=== PATIENT | female | born 1930 | race Caucasian/White ===

== ENCOUNTER 2017-01-13 11:13 | Emergency (ER) | payer MEDICARE, BC ==
[~2017-01-13] VITALS: Wt 44.0 kg
[~2017-01-13 11:13] MED LIST: ASPI-650; CIPR500T4 PO; COU25; COU5; DIGO125T73; FOLI-49; FURO20TA3 PO; IVAB5TAB PO; OMEG-135; PANT40TA4 PO; POTA8CAP PO; SUCR1TAB27 PO; THYR60TA; TIMO5DRO21; TRAV2.5D; UBID1CAP18; VALS80TA2; [UNRECOGNIZED DRUG - CODE]
--- NOTE | 2017-01-13 11:19 | ERA ---
ER Documentation Chief Complaint Date/Time DATE: 01/13/17 TIME: 11:18 Chief Complaint fall HPI The patient is 86-year-old female, presenting to the ER because he had a mechanical fall at 9 AM today. She fell and hit the back of her head on the floor. She denies syncope, near syncope, seizure, chest pain, dyspnea, abdominal pain, vomiting, dysuria, diarrhea. She does not smoke, drinks regularly Past medical history: Hypothyroidism, hypertension, history of CHF, CAD, asthma , diabetes mellitus, peripheral vascular disease, history of ascending aortic aneurysm, history of GI bleed, chronic kidney disease Past surgical history: Aortic valve replacement, pacemaker ROS All systems reviewed and are negative except as per history of present illness. Medications Home Meds Reported Medications Folic Acid* (Folic Acid*) 1 Mg Tablet, 1 MG PO DAILY, TAB 01/13/17 Digoxin* (Lanoxin*) 0.125 Mg Tablet, 0.125 MG PO DAILY, TAB 01/13/17 Aspirin (Low Dose Aspirin) 81 Mg Tablet.dr, 81 MG PO DAILY, #30 TAB 01/13/17 Warfarin Sodium* (Coumadin*) 5 Mg Tablet, 5 MG PO M,T,W,THUR,F,SAT, TAB 01/13/17 Warfarin Sodium* (Coumadin*) 2.5 Mg Tablet, 2.5 MG PO ON SUNDAYS, TAB 01/13/17 Vitamin E* (Vitamin E*) 400 Unit Capsule, 400 UNIT PO DAILY, CAP 01/13/17 Cholecalciferol (Vitamin D3) 5,000 Unit Tablet, 5000 UNIT PO DAILY, TAB 01/13/17 Ubidecarenone (Coq-10) 100 Mg Capsule, 100 MG PO DAILY, CAP 01/13/17 Bupropion Hcl* (Bupropion XL*) 150 Mg Tab.er.24h, 150 MG PO DAILY, TAB.SA 01/13/17 Thyroid* (Oil Trough Thyroid*) 60 Mg Tablet, 60 MG PO DAILY, TAB 01/13/17 Furosemide* (Lasix*) 20 Mg Tablet, 20 MG PO DAILY, TAB 01/13/17 Pantoprazole* (Pantoprazole*) 40 Mg Tablet.dr, 40 MG PO AC BREAKFAST, TAB 01/13/17 Valsartan* (Diovan*) 80 Mg Tablet, 80 MG PO DAILY, TAB 01/13/17 Ferrous Sulfate* (Ferrous Sulfate*) 325 Mg Tabec, 325 MG PO DAILY, TAB 01/13/17 Glucosamine/Msm/Chondroitin A (TRIPLE FLEX CAPLET) 1 Each Tablet, 1 EACH PO BID , TAB 01/13/17 Discontinued Reported Medications Ivabradine HCl (Corlanor) 5 Mg Tablet, 5 MG PO DAILY, #60 TAB 03/17/16 Potassium Chloride* (Potassium Chloride*) 8 Meq Capsule.er, 10 MEQ PO DAILY, CAP 03/17/16 Furosemide* (Furosemide*) 20 Mg Tablet, 20 MG PO DAILY, #60 TAB 03/17/16 Timolol Maleate (Istalol) 5 Ml Drop.daily 08/06/10 Travoprost* (Travatan Z*) 2.5 Ml Drops 08/06/10 Fish Oil* (Fish Oil*) 1,000 Mg Cap 08/06/10 Biotin (Hard Nails) 2,500 Mcg Capsule 08/06/10 Ubidecarenone/Vitamin E Mixed (Coq10 Sg 100 Softgel) 1 Cap Capsule 08/06/10 Aspirin (Aspirin) 81 Mg Tablet 08/06/10 Thyroid* (Oil Trough Thyroid*) 60 Mg Tablet 08/06/10 Warfarin Sod (Coumadin) 2.5 Mg Tablet 08/06/10 Warfarin Sod (Coumadin) 5 Mg Tablet 08/06/10 Digoxin (Digoxin) 125 Mcg Tablet 08/06/10 Folic Acid* (Folic Acid*) 1 Mg Tablet 08/06/10 Valsartan* (Diovan*) 80 Mg Tablet 08/06/10 Discontinued Scripts Ciprofloxacin Hcl* (Ciprofloxacin Hcl*) 500 Mg Tablet, 500 MG PO BID for 7 Days , TAB Prov:CHARI PURVIS 04/18/16 Sucralfate (Carafate) 1 Gm Tablet, 1 GM PO QID for 30 Days, TAB Prov:ADDISON IRIZARRY MD 03/21/16 Pantoprazole* (Pantoprazole*) 40 Mg Tablet.dr, 40 MG PO BID@ for 30 Days, 1 Refill Prov:ADDISON IRIZARRY MD 03/21/16 Allergies Allergies: Coded Allergies: No Known Drug Allergy (Verified Allergy, Unknown, 01/13/17) PMhx/Soc History of Surgery: Yes (tonsillectomy, artificial aortic valve, face lift, abdominal hernia, pacer/) Anesthesia Reaction: No Hx Neurological Disorder: No Hx Respiratory Disorders: No Hx Cardiac Disorders: Yes (pacemaker, htn, chf, X2 STENTS) Hx Psychiatric Problems: No Hx Miscellaneous Medical Probl: Yes ([place] virus) Hx Alcohol Use: Yes (1 glass of wine every night) Hx Substance Use: No Hx Tobacco Use: No Physical Exam Vitals Vital Signs Date Time Temp Pulse Resp B/P Pulse Ox O2 Delivery O2 Flow Rate FiO2 01/13/17 11:28 98.8 75 20 155/66 99 Physical Exam Const: No acute distress. Head: Atraumatic. Small occipital hematoma, no laceration Eyes: Normal Conjunctiva. No nystagmus ENT: Normal External Ears, Nose and Mouth. Neck: Full range of motion. No meningismus. Resp: Clear to auscultation bilaterally. Cardio: Regular rate and rhythm, no murmurs. Abd: Soft, non distended, normal bowel sounds, non tender. Skin: No petechiae or rashes. Back: No midline or flank tenderness. Ext: No cyanosis, or edema. Neur: Awake and alert. No focal deficit Psych: Normal Mood and Affect. Result Diagram: 01/13/17 1153 01/13/17 1153 Results 24 hrs Laboratory Tests Test 01/13/17 11:53 White Blood Count 6.010^3/ul Red Blood Count 3.3510^6/ul Hemoglobin 11.0g/dl Hematocrit 33.0% Mean Corpuscular Volume 98.5fl Mean Corpuscular Hemoglobin 32.8pg Mean Corpuscular Hemoglobin Concent 33.3g/dl Red Cell Distribution Width 14.0% Platelet Count 19414^3/UL Mean Platelet Volume 10.3fl Neutrophils % 74.5% Lymphocytes % 15.2% Monocytes % 7.0% Eosinophils % 2.2% Basophils % 0.3% Nucleated Red Blood Cells % 0.0/100WBC Neutrophils # 4.510^3/ul Lymphocytes # 0.910^3/ul Monocytes # 0.410^3/ul Eosinophils # 0.110^3/ul Basophils # 0.010^3/ul Nucleated Red Blood Cells # 0.010^3/ul Prothrombin Time 24.3Sec Prothrombin Time Ratio 1.9 INR International Normalized Ratio 2.16 Activated Partial Thromboplast Time 37.3Sec Sodium Level 143mmol/L Potassium Level 4.6mmol/L Chloride Level 107mmol/L Carbon Dioxide Level 24mmol/L Anion Gap 17 Blood Urea Nitrogen 37mg/dl Creatinine 1.84mg/dl Glucose Level 105mg/dl Calcium Level 9.4mg/dl Digoxin Level 1.1ng/ml Ethyl Alcohol Level < 10.0mg/dl Procedures/[place] [id number] Radiology Main Line: [phone] DIAGNOSTIC IMAGING REPORT Patient: DINORA NELSON : 1930 Age: 86 Sex: F MR #: [id number] DOS: 01/13/17 1127 Ordering MD: STACIE LOW MD Location: E/R Room/Bed: PROCEDURE: CT cervical spine without contrast. CLINICAL INDICATION: Trauma TECHNIQUE: Axial imaging was obtained through the cervical spine using a multi- slice CT scanner. Standard CT scan of the cervical spine without contrast protocols were performed. CTDI: 22.07 and DLP: 403.90. One or more of the following dose reduction techniques were used: - Automated exposure control. - Adjustment of the mA and/or kV according to patient size. Use of iterative reconstruction technique. COMPARISON: None. FINDINGS: There is no evidence of acute fractures or subluxations. The bony mineralization is normal. No focal bony blastic or lytic lesions. The posterior elements are intact. There is moderate to severe degenerate disease of the C5-6 and C6-7 discs with bilateral neural foraminal narrowing worse on the left. No other neural foraminal narrowing. No evidence of central spinal canal stenosis. There is spondylosis involving the C3-C7 vertebral levels. There is degenerative changes of the lateral masses of the C3-4 through C6-7 vertebral levels. There is atherosclerotic heart plaque involving the carotid arteries. There is no evidence of prevertebral soft tissue swelling. Mild scarring involving the anterior right apex. Remainder of the lung apices and airway visualized are unremarkable. IMPRESSION: 1. Degenerative changes in neural foraminal narrowing as described above. 2. No evidence acute fractures subluxations or central spinal canal stenosis. RPTAT:AAJJ Physician Blair Date Time Electronically viewed and signed by Physician Blair on 01/13/2017 12:35 BM/ CC: STACIE LOW MD [place] [id number] Radiology Main Line: [phone] DIAGNOSTIC IMAGING REPORT Patient: DINORA NELSON : 1930 Age: 86 Sex: F MR #: [id number] DOS: 01/13/17 1127 Ordering MD: STACIE LOW MD Location: E/R Room/Bed: PROCEDURE: CT Brain without contrast. CLINICAL INDICATION: Status post trauma. TECHNIQUE: CT scan of the brain was performed on a multidetector high- resolution CT scan. Axial imaging was obtained of the brain without contrast administration. Coronal and sagittal reformatted images were obtained from the axial source images. Standard CT scan of the head without contrast protocols were performed. The total exam CTDI equals 43.95 mGy and the total exam DLP equals 720.23 mGy- cm. One or more of the following dose reduction techniques were used: - Automated exposure control. - Adjustment of the mA and/or kV according to patient size. Use of iterative reconstruction technique. COMPARISON: None. FINDINGS: Small cephalohematoma involving the posterior scroll assembler. No underlying calvarial fracture or radiodense foreign body. There is mucosal thickening involving both maxillary sinuses worse on the right. Mucosal thickening involving the right frontal sinus. Remainder the paranasal sinuses visualized are unremarkable. The mastoids are unremarkable. Ventricular system is normal in size without evidence of midline shift. There is moderate prominence of the peripheral CSF spaces consistent with moderate generalized cerebral volume loss. No evidence of intracranial masses hemorrhages or midline shift. There is mild nonspecific periventricular deep white matter changes consistent with chronic microvascular ischemic disease. IMPRESSION: 1. Moderate generalized cerebral volume loss. 2. Mild nonspecific chronic microvascular ischemic disease. 3. Negative for intracranial masses hemorrhages or midline shift. RPTAT:AAJJ Physician Blair Date Time Electronically viewed and signed by Physician Blair on 01/13/2017 12:31 BM/ CC: STACIE LOW MD EKG: Read by emergency physician Rate/Rhythm: Paced rhythm 72 beats/min No further attempt to interpret the EKG MEDICAL MAKING DECISION: The patient is 86-year-old female, presenting with acute small occipital hematoma, status post mechanical fall. She remains stable in emergency department The differential diagnoses considered include but are not limited to subarachnoid hemorrhage, occult trauma, CVA, meningitis, encephalitis, hypertension, tension, migraine, cluster, narcotic withdrawal, cervical spine disease. Departure Diagnosis: Primary Impression: Scalp contusion Condition: Good Comments I discussed the findings with the patient. I advised the patient to follow-up with the primary physician in about 1-2 days, sooner if needed and return if any concern. STACIE LOW MD January 13, 2017 11:19
[2017-01-13] MEDS ORDERED: GLUC-137 PO (11:34)
[2017-01-13] MEDS ORDERED: VALS80TA2 PO (11:35)
[2017-01-13] MEDS ORDERED: FER325 PO (11:35)
[2017-01-13] MEDS ORDERED: FURO-110 PO (11:36)
[2017-01-13] MEDS ORDERED: PANT40TA4 PO (11:36)
[2017-01-13] MEDS ORDERED: BUPR150T6 PO (11:37)
[2017-01-13] MEDS ORDERED: THYR60TA PO (11:37)
[2017-01-13] MEDS ORDERED: UBID100C24 PO (11:37)
[2017-01-13] MEDS ORDERED: CHOL500010 PO (11:39)
[2017-01-13] MEDS ORDERED: VITA400C15 PO (11:40)
[2017-01-13] MEDS ORDERED: WARF5TAB72 PO (11:41)
[2017-01-13] MEDS ORDERED: WARF2.5T PO (11:41)
[2017-01-13] MEDS ORDERED: ASPI-664 PO (11:42)
[2017-01-13] MEDS ORDERED: DIGO125T6 PO (11:42)
[2017-01-13] MEDS ORDERED: FOLI-49 PO (11:42)
[2017-01-13 12:06] LABS: ADD SCAN DIFF NO
[2017-01-13 12:10] LABS: BASOPHILS % 0.3 % (0.0-2.0); EOSINOPHILS # 0.1 10^3/ul (0.0-0.5); EOSINOPHILS % 2.2 % (0.0-7.0); LYMPHOCYTES # 0.9 10^3/ul (0.8-2.9); LYMPHOCYTES % 15.2 % (15.0-51.0); MEAN CORPUSCULAR HEMOGLOBIN 32.8 pg (29.0-33.0); MEAN CORPUSCULAR HGB CONC 33.3 g/dl (32.0-37.0); MEAN CORPUSCULAR VOLUME 98.5 fl (82.0-101.0); MEAN PLATELET VOLUME 10.3 fl (7.4-10.4); MONOCYTE # 0.4 10^3/ul (0.3-0.9); NEUTROPHIL # 4.5 10^3/ul (1.6-7.5); NEUTROPHILS % 74.5 % (39.0-77.0); PLATELET COUNT 165 10^3/UL (140-415); RED BLOOD COUNT 3.35 10^6/ul (4.20-5.40)
[2017-01-13 12:15] VITALS: BP 124/88; PULSE 78; RESP 18; TEMP 98
[2017-01-13 12:25] LABS: INR 2.16; PARTIAL THROMBOPLASTIN TIME 37.3 Sec (25.0-35.0); PROTIME 24.3 Sec (12.2-14.2); PT RATIO 1.9
--- NOTE | 2017-01-13 12:31 | RADRPT ---
PROCEDURE: CT Brain without contrast. CLINICAL INDICATION: Status post trauma. TECHNIQUE: CT scan of the brain was performed on a multidetector high-resolution CT scan. Axial im aging was obtained of the brain without contrast administration. Coronal and sagittal reformatted i mages were obtained from the axial source images. Standard CT scan of the head without contrast prot ocols were performed. The total exam CTDI equals 43.95 mGy and the total exam DLP equals 720.23 mGy-cm. One or more of the following dose reduction techniques were used: - Automated exposure control. - Adjustment of the mA and/or kV according to patient size. Use of iterative reconstruction technique. COMPARISON: None. FINDINGS: Small cephalohematoma involving the posterior clay washer. No underlying calvarial fracture or radiodense foreign body. There is mucosal thickening involving both maxillary sinuses worse on the right. Mu cosal thickening involving the right frontal sinus. Remainder the paranasal sinuses visualized are unremarkable. The mastoids are unremarkable. Ventricular system is normal in size without evidence of midline shift. There is moderate prominence of the peripheral CSF spaces consistent with modera te generalized cerebral volume loss. No evidence of intracranial masses hemorrhages or midline shif t. There is mild nonspecific periventricular deep white matter changes consistent with chronic micr ovascular ischemic disease. IMPRESSION: 1. Moderate generalized cerebral volume loss. 2. Mild nonspecific chronic microvascular ischemic disease. 3. Negative for intracranial masses hemorrhages or midline shift. RPTAT:AAJJ Physician Blair Date Time Electronically viewed and signed by Physician Blair on 01/13/2017 12:31 BM/
[2017-01-13 12:32] LABS: CHLORIDE 107 mmol/L (97-110); POTASSIUM 4.6 mmol/L (3.5-5.1); SODIUM 143 mmol/L (135-144)
[2017-01-13 12:35] LABS: ANION GAP 17 (8-16); BLOOD UREA NITROGEN 37 mg/dl (7-20); CARBON DIOXIDE 24 mmol/L (21-31); CREATININE 1.84 mg/dl (0.44-1.00)
--- NOTE | 2017-01-13 12:35 | RADRPT ---
PROCEDURE: CT cervical spine without contrast. CLINICAL INDICATION: Trauma TECHNIQUE: Axial imaging was obtained through the cervical spine using a multi-slice CT scanner. [facility] of the cervical spine without contrast protocols were performed. CTDI: 22.07 and DLP: 403.90. One or more of the following dose reduction techniques were used: - Automated exposure control. - Adjustment of the mA and/or kV according to patient size. Use of iterative reconstruction technique. COMPARISON: None. FINDINGS: There is no evidence of acute fractures or subluxations. The bony mineralization is normal. No foc al bony blastic or lytic lesions. The posterior elements are intact. There is moderate to severe d egenerate disease of the C5-6 and C6-7 discs with bilateral neural foraminal narrowing worse on the left. No other neural foraminal narrowing. No evidence of central spinal canal stenosis. There is spondylosis involving the C3-C7 vertebral levels. There is degenerative changes of the lateral mas ses of the C3-4 through C6-7 vertebral levels. There is atherosclerotic heart plaque involving the carotid arteries. There is no evidence of prevertebral soft tissue swelling. Mild scarring involvi ng the anterior right apex. Remainder of the lung apices and airway visualized are unremarkable. IMPRESSION: 1. Degenerative changes in neural foraminal narrowing as described above. 2. No evidence acute fractures subluxations or central spinal canal stenosis. RPTAT:AAJJ Physician Blair Date Time Electronically viewed and signed by Physician Blair on 01/13/2017 12:35 BM/
[2017-01-13 12:36] LABS: CALCIUM 9.4 mg/dl (8.4-10.2); GLUCOSE 105 mg/dl (70-220)
[2017-01-13 12:46] LABS: ETHANOL < 10.0 mg/dl
== END 2017-01-13 14:16 | disposition home or self-care (01) ==
LOC: E/R 11:13
DX: S00.03XA Contusion of scalp, initial encounter (principal); E03.9 Hypothyroidism, unspecified; E11.9 Type 2 diabetes mellitus without complications; I25.10 Atherosclerotic heart disease of native coronary artery without angina pectoris; I50.9 Heart failure, unspecified; I12.9 Hypertensive chronic kidney disease with stage 1 through stage 4 chronic kidney disease, or unspecified chronic kidney disease; N18.9 Chronic kidney disease, unspecified; J45.909 Unspecified asthma, uncomplicated; W18.09XA Striking against other object with subsequent fall, initial encounter; Y92.9 Unspecified place or not applicable; Z98.61 Coronary angioplasty status; Z95.0 Presence of cardiac pacemaker; Z79.82 Long term (current) use of aspirin; Z79.01 Long term (current) use of anticoagulants
CPT/HCPCS: 36415; 70450; 72125; 80048; 80162; 80306; 85025; 85610; 85730; 93005

== ENCOUNTER → 2017-12-04 | Outpatient (CLI) | END | disposition home or self-care (01) ==

== ENCOUNTER 2018-01-20 02:02 | Emergency (ER) | END 2018-01-20 05:40 | disposition home or self-care (01) ==

== ENCOUNTER 2018-02-18 21:16 | Observation (INO) | END 2018-02-20 16:10 | disposition home health service (06) ==

== ENCOUNTER 2018-03-16 23:54 | Observation (INO) | END 2018-03-19 16:11 | disposition home or self-care (01) ==